=== PATIENT | female | born 1945 | race Caucasian/White ===

== ENCOUNTER 2016-09-25 10:31 | Emergency (ER) | payer OTHER ==
[~2016-09-25] VITALS: Ht 165.1 cm; Wt 70.3 kg
[2016-09-25 10:34] VITALS: BP 136/73
[2016-09-25] MEDS ORDERED: DIAZEPAM 5 MG TABLET PO ONE (11:00)
[2016-09-25] MEDS ORDERED: OXYCODONE/APAP 5/325 TABLET. PO ONE (11:00)
--- NOTE | 2016-09-25 11:09 | PHYS DOC ---
Past Medical History Past Medical History: Anxiety, Arthritis, GERD, Hypothyroid, Other Additional Past Medical Histor: dry eyes and mouth Past Surgical History: Hysterectomy, Tonsillectomy, Other Additional Past Surgical Histo: bilateral hip; R shoulder; ovarian cystectomy Alcohol Use: None Drug Use: None Adult General Chief Complaint Chief Complaint: Neck Pain HPI HPI Patient is a 71 year old female with history of anxiety hypothyroidism and acid reflux who presents today with mild neck pain that began 3 days ago when she got up. Patient states she had right hip surgery 6 weeks ago, she states she was instructed not to sleep on her right side. She states by the nature of sleeping on the left side she has neck pain and pain btwn her shoulder blades. Patient denies any shortness of breath. Denies any coughing or fever. She states she is currently on aspirin for DVT prophylaxis. She states she also has been taking oxycodone for her pain. She states she tried taking a muscle relaxer at home with no relief. She cannot remember the name of the muscle relaxer. PCP at . Review of Systems Review of Systems Constitutional: Denies fever or chills [] Eyes: Denies change in visual acuity, redness, or eye pain [] HENT: Denies nasal congestion or sore throat [] Respiratory: Denies cough or shortness of breath [] Cardiovascular: No additional information not addressed in HPI [] GI: Denies abdominal pain, nausea, vomiting, bloody stools or diarrhea [] : Denies dysuria or hematuria [] Musculoskeletal: neck pain, pain btwn shoulder blades Integument: Denies rash or skin lesions [] Neurologic: Denies headache, focal weakness or sensory changes [] Endocrine: Denies polyuria or polydipsia [] Current Medications Current Medications Current Medications Medications (Trade) Dose Ordered Sig/Adryan Start Time Stop Time Status Last Admin Dose Admin Diazepam (Valium) 5 mg 1X ONCE 09/25/16 11:00 09/25/16 11:02 DC 09/25/16 12:17 5 MG Oxycodone/ Acetaminophen (Percocet 5/325) 1 tab 1X ONCE 09/25/16 11:00 09/25/16 11:02 DC 09/25/16 12:17 1 TAB Allergies Allergies Allergies Coded Allergies Type Severity Reaction Last Updated Verified No Known Drug Allergies 3/16/17 No Physical Exam Physical Exam Constitutional: Well developed, well nourished, no acute distress, non-toxic appearance. [] HENT: Normocephalic, atraumatic, bilateral external ears normal, oropharynx moist, no oral exudates, nose normal. [] Eyes: PERRLA, EOMI, conjunctiva normal, no discharge. [] Neck: Diffuse paraspinal muscle tenderness to posterior cervical spine, no midline tenderness. Slightly Limited range of motion to the left lateral spine due to pain. No tenderness, supple, no stridor. [] Cardiovascular:Heart rate regular rhythm, no murmur [] Lungs & Thorax: Bilateral breath sounds clear to auscultation [] Abdomen: Bowel sounds normal, soft, no tenderness, no masses, no pulsatile masses. [] Skin: Warm, dry, no erythema, no rash. [] Back: No tenderness, no CVA tenderness. [] Extremities: No tenderness, no cyanosis, no clubbing, ROM intact, no edema. [] Neurologic: Alert and oriented X 3, normal motor function, normal sensory function, no focal deficits noted. [] Psychologic: Affect normal, judgement normal, mood normal. [] Current Patient Data Vital Signs Vital Signs Date Time Temp Pulse Resp B/P Pulse Ox O2 Delivery O2 Flow Rate FiO2 09/25/16 12:17 18 95 Room Air 09/25/16 10:34 97.9 96 136/73 97.9 EKG EKG [] Radiology/Procedures Radiology/Procedures [] Course & Med Decision Making Course & Med Decision Making Pertinent Labs and Imaging studies reviewed. (See chart for details) Patient is in the ED complaining of neck pain and pain between her shoulder blades, she had right hip replacement surgery 6 weeks ago and states she's been sleeping on her left side or her back by request from her doctor not to lay on her right side. Patient is refusing any cardiac workup especially with her history of having recent hip replacement and pain between her shoulder blades. All she wants her x-rays. Cervical spine x-rays are negative for any acute findings but noted for DJD. Discharged with instructions to follow-up with her PCP in 1-2 weeks. Instructed to continue taking her muscle relaxer and oxycodone at home. She states her muscle relaxer could be . Gave her prescription for Flexeril. Dragon Disclaimer Dragon Disclaimer This electronic medical record was generated, in whole or in part, using a voice recognition dictation system. Departure Departure Impression: Primary Impression: Acute torticollis Additional Impression: DJD (degenerative joint disease), cervical Disposition: HOME, SELF-CARE Condition: STABLE Referrals: TRACEY DURAN (PCP) Follow-up with your own doctor in 1-2 weeks. Patient Instructions: Arthritis, Degenerative-Brief, Torticollis, Acute Additional Instructions: You were seen for arthritis and degenerative changes in your neck. Follow-up with your own primary care doctor in the next 7 days. Continue taking your pain medicines at home. Take the prescribed muscle relaxer as needed. Come back to the ED at any point symptoms worsen. Scripts Cyclobenzaprine Hcl 10 Mg Tablet1 Tab PO TID #30 TAB Prov:SHANNON DRAPER APRN 09/25/16 Problem Qualifiers SHANNON DRAPER APRN Sep 25, 2016 11:09
--- NOTE | 2016-09-25 11:54 | RAD ---
AP chest, 09/25/2016: History: Upper back pain, cough Comparison is made to a study from 03/27/2011. The heart size and pulmonary vascularity are normal. No pulmonary infiltrates are seen. There is no evidence of pleural fluid. IMPRESSION: No acute cardiopulmonary abnormality is detected.
--- NOTE | 2016-09-25 11:55 | RAD ---
Cervical spine, 3 views, 09/25/2016: History: Neck pain No fracture or dislocation is identified. There is moderate disc space narrowing at C5-6 and C6-7 with moderate marginal spurring. There is a lesser degree of disc space narrowing and marginal spurring at C4-5. There are moderate hypertrophic degenerative changes involving scattered facet joints bilaterally. No prevertebral soft tissue swelling is seen. IMPRESSION: 1. Moderate multilevel degenerative change. 2. No acute bony abnormality is detected.
[2016-09-25] MEDS ORDERED: CYCL10TA2 PO (13:06)
== END 2016-09-25 13:13 | disposition home or self-care (01) ==
LOC: ER 10:31
DX: M43.6 Torticollis (principal); M47.9 Spondylosis, unspecified; Z79.82 Long term (current) use of aspirin; F41.9 Anxiety disorder, unspecified; M19.90 Unspecified osteoarthritis, unspecified site; K21.9 Gastro-esophageal reflux disease without esophagitis; E03.9 Hypothyroidism, unspecified; Z86.718 Personal history of other venous thrombosis and embolism; Z90.710 Acquired absence of both cervix and uterus
CPT/HCPCS: 71010; 72040; 99284-25

== ENCOUNTER → 2016-10-22 | Outpatient (CLI) | payer OTHER ==
[2016-09-25 10:34] VITALS: BP 136/73
[~2016-10-22] MED LIST: CYCL10TA2 PO
--- NOTE | 2016-10-22 16:20 | KCIC ---
Bilateral digital screening mammograms with CAD: HISTORY Routine screening COMPARISON Comparison is made to previous examinations dated back to 06/03/2013. FINDINGS Breast density category C. The skin and nipples show no abnormalities. No abnormal lymph nodes are seen in the axilla. The breast parenchyma shows heterogeneous density. There are no dominant masses, suspicious calcifications or architectural distortions. IMPRESSION No evidence of malignancy. Recommend routine annual mammographic screening. This study was interpreted with the benefit of Computerized Aided Detection (CAD). Mammography is not 100% sensitive in detecting breast cancer. Therefore, a self breast exam and a clinical breast exam are very important. A negative mammogram does not negate a clinically suspicious finding and should not result in a delay in biopsying a clinically suspicious abnormality. BI-RADS category 2: Benign. This patient's information has been entered into a reminder system for the patient to be notified with the results of this examination and a target date for her next mammograms. Electronically signed by: Ladan Davis MD (Oct 22, 2016 16:17:39)
== END | disposition home or self-care (01) ==
LOC: KCIC MAMMO 14:23
PROVIDERS: ATTEND Obstetrics & Gynecology
DX: Z12.31 Encounter for screening mammogram for malignant neoplasm of breast (principal)
CPT/HCPCS: G0202; 77067

== ENCOUNTER → 2017-11-12 | Outpatient (CLI) | payer OTHER | END | disposition home or self-care (01) | LOC: KCIC MAMMO 14:06 | DX: Z12.31 Encounter for screening mammogram for malignant neoplasm of breast (principal) | CPT/HCPCS: 77063; 77067 ==

== ENCOUNTER → 2018-04-08 | Outpatient (CLI) | payer OTHER ==
--- NOTE | 2018-04-08 14:36 | KCIC ---
MRI of the lumbar spine without contrast 04/08/2018 HISTORY: Chronic low back pain. TECHNIQUE: Unenhanced T1-weighted and T2-weighted sagittal and axial and inversion recovery sagittal images of the lumbar spine were obtained. FINDINGS: Minimal S-shaped curvature of the thoracolumbar spine is seen. Degenerative signal changes are seen involving all of the disks of the lumbar spine. Degenerative signal changes are seen within the marrow surrounding these discs. The conus medullaris is normal morphology, position, and signal characteristics. At the L1-2 and L2-3 and L3-4 disc spaces there are mild generalized disc bulges. Degenerative changes are seen involving the facet joints bilaterally. There is mild to moderate ligamentum flavum hypertrophy bilaterally. These findings do not result in significant central spinal canal or neural foraminal stenosis. At the L4-5 disc space there is a mild generalized disc bulge. Degenerative changes are seen involving the facet joints bilaterally. There is moderate ligamentum flavum hypertrophy bilaterally. These findings when combined result in mild central spinal canal stenosis. No neural foraminal stenosis is seen. At the L5-S1 disc space there is a mild generalized disc bulge. Superimposed on this disc bulge is a focal central disc protrusion. This measures 3 mm in AP diameter. Degenerative changes are seen involving the facet joints bilaterally. There is moderate ligamentum flavum hypertrophy bilaterally. Small to moderate-sized facet joint effusions are seen. These findings when combined do not result in significant central spinal canal or neural foraminal stenosis. IMPRESSION: The changes of degenerative disc disease are seen involving the lumbar spine. These findings result in mild central spinal canal stenosis at L4-5. No neural foraminal stenosis is seen. Electronically signed by: Luis Miguel García MD (04/08/2018 2:32 PM) [email or web address]
== END | disposition home or self-care (01) ==
LOC: KCIC MRI 12:21
PROVIDERS: ATTEND Internal Medicine
DX: M51.36 Other intervertebral disc degeneration, lumbar region (principal); M51.26 Other intervertebral disc displacement, lumbar region; M48.061 Spinal stenosis, lumbar region without neurogenic claudication; M25.48 Effusion, other site; G89.29 Other chronic pain
CPT/HCPCS: 72148

== ENCOUNTER → 2018-04-13 | Outpatient (CLI) | payer OTHER ==
--- NOTE | 2018-04-13 15:26 | KCIC ---
EXAM: Lumbar spine, flexion and extension. HISTORY: Spondylolisthesis. COMPARISON: MRI dated 04/08/2018. FINDINGS: Lateral neutral, flexion and extension views of the lumbar spine are obtained. There is grade 1 anterolisthesis of L5 on S1 which measures approximately 4 mm in neutral position and increases to 7 mm with flexion. No additional significant listhesis is seen. The vertebral bodies are normal in height. There is endplate remodeling at all levels. There are few endplate Schmorl's nodes. There is facet arthropathy at all levels. IMPRESSION: 1. Grade 1 anterolisthesis of L5 on S1 which increases with flexion. 2. Multilevel degenerative change throughout the lumbar spine. Electronically signed by: Mandi Storey MD (04/13/2018 3:22 PM) [email or web address]
== END | disposition home or self-care (01) ==
LOC: KCIC 13:58
PROVIDERS: ATTEND Neurological Surgery
DX: M43.17 Spondylolisthesis, lumbosacral region (principal); M47.896 Other spondylosis, lumbar region; M51.46 Schmorl's nodes, lumbar region; M12.88 Other specific arthropathies, not elsewhere classified, other specified site; E03.9 Hypothyroidism, unspecified; K21.9 Gastro-esophageal reflux disease without esophagitis; Z86.718 Personal history of other venous thrombosis and embolism; Z90.710 Acquired absence of both cervix and uterus
CPT/HCPCS: 72100

== ENCOUNTER → 2019-04-14 | Outpatient (CLI) | payer OTHER ==
[~2019-04-14] MED LIST changes: +CEVI30CA5 PO; +CLON2TAB PO; +DOCU100C28 PO; +LACT1CAP8 PO; +LEVO88TA4 PO; +MULT1TAB52 PO; +OMEG-57 PO; +OMEP40CA45 PO; +OXYC1TAB15 PO
--- NOTE | 2019-04-14 19:31 | PAIN ---
DATE OF SERVICE: 04/14/2019 INITIAL CONSULTATION FOR PAIN CLINIC CHIEF COMPLAINT: Low back and right lower extremity pain. HISTORY OF PRESENT ILLNESS: This is a 73-year-old female who presents with history of pain in the low back and right leg, mostly in the hip posteriorly in the posterior lateral thigh, and gluteus. The patient reports it is worse with movement, walking, standing, changing positions. She is doing some strengthening and stretching exercises. The patient reports that started about 2017. She did a "boot camp for seniors," which has some significant exercise involved and strained her back. The patient reports it has not been the same since she has had physical therapy treatment. She has had chiropractic treatment, doing exercise currently, trigger point injections and had a shot at her orthopedic surgeon's office as well in the posterior hip, all of which was very temporary in helping. She has been taking oxycodone; however, 5 mg and takes 3 a day, one in the morning, one around noontime and one in the evening and she has 0 pain with this regimen. The patient reports otherwise she has pain with movement, walking, standing, changing positions. Reports currently, the pain does not awaken her from sleep at night, does not affect her bowel or bladder control, does not affect her ability to walk, does not use any assistive devices to walk, as well as long she is taking oxycodone. She is doing weights. She has 0 pain. The patient reports disability rating from 0-10, 10 being the worst to 1 and recreational activities and 0 in all other categories. The patient did have MRI scan of the lumbar spine showing L4-L5 degenerative disk changes and bulging disks with some mild central spinal canal stenosis, also L5-S1 shows disk space with mild generalized disk bulge and focal disk protrusion centrally with moderate ligamentum flavum hypertrophy, but without any significant central spinal canal or neural foraminal stenosis. The patient reports no loss of motor function as long she takes her oxycodone, she has no pain. PAST MEDICAL HISTORY: Significant for arthritis, gastroesophageal reflux, mild hearing loss. PREVIOUS SURGERY: Include hip replacement in 2017 and right cataract extraction. CURRENT MEDICATIONS: Include cyclobenzaprine, Evoxac, Klonopin, docusate, fish oil, oxycodone, probiotics, omeprazole, multivitamins, and levothyroxine. ALLERGIES: The patient has no known drug allergies. FAMILY HISTORY: Significant for no major medical problems or conditions she is aware of. SOCIAL HISTORY: The patient does not drink alcohol, does not smoke, does not use illegal or recreational drugs. She is single, , lives locally in [place], [place]. Reports she is currently retired. REVIEW OF SYSTEMS: The patient's review of systems is positive for those items mentioned in history of present illness. All systems reviewed and otherwise negative. It is complete, full and well documented on the patient's chart. PHYSICAL EXAMINATION: VITAL SIGNS: Blood pressure 130/81, pulse 64, respirations 18, temperature 98.2 degrees Fahrenheit, height is 5 feet 5 inches, weight is 162 pounds. GENERAL: The patient is awake, alert, oriented, appropriate, very pleasant demeanor. HEENT: Shows normocephalic, atraumatic. Extraocular movements are intact and symmetrical. Oral cavity: Mucous membranes moist and pink. Dentition is intact. NECK: Shows anterior throat supple without palpable lymphadenopathy noted. Swallow reflex symmetrical. CHEST: Shows normal on inspection. Breath sounds are clear to auscultation bilaterally. HEART: Shows S1, S2 clear. No murmurs auscultated. ABDOMEN: Soft, nontender and nondistended. No palpable organomegaly is noted. No rebound or guarding demonstrated. BACK: Shows spine grossly in the midline. Normal appearing thoracic kyphosis and lumbar lordotic curvature. Lumbar paraspinous muscle shows symmetrical on inspection with palpation shows some very mild tenderness only with very deep palpation just right of midline in the low lumbar distribution without radiation. No tenderness over the spinous processes, sacrum or sacroiliac regions. The patient has full rotational motion of lumbar spine, both laterally as well as extension and flexion without difficulty. EXTREMITIES: Lower extremities show deep tendon reflexes 2+ in the patellar, 1+ tendo-calcaneus tendons. Motor exam is strong with 5/5 dorsiflexion, extension, quadriceps and hamstring flexion and symmetrical. Peripheral pulses are 1+ posterior tibial. The patient has some very mild straight leg raise on the right side, but only very mild about 45 degrees, decreased with knee flexion, left side is negative. Peripheral pulses are 1+ posterior tibial. Lower extremities are warm and dry to touch, equal in color and appearance. No peripheral edema is noted bilaterally. The patient is able to stand, stand on her toes without difficulty or loss of balance, walks with normal appearing gait without any assistive devices. SKIN: The patient's skin shows warm and dry, good turgor. No edema. No sores, rashes or bruising throughout. IMPRESSION: 1. This is a 73-year-old female with approximate 3-year history of increasing low back pain, right lower extremity following an L5-S1 dermatomal distribution into the right lower extremity, mostly just in the upper leg and hip. 2. Arthritis. 3. Hearing loss. 4. Gastroesophageal reflux. PLAN: Options were discussed with the patient including conservative medical management, physical therapies, interventional techniques, she would like to pursue interventional techniques as she has done all of the other therapies and is continuing to do exercises on her own. We discussed a lumbar epidural steroid injection using description as well as anatomical models to describe the procedure. She will wait for preauthorization with her insurance provider for her persistent right L5-S1 dermatomal radiculopathy. We will plan on lumbar epidural steroid injection, translaminar approach at the L5-S1 level. In the meantime, the patient will try Medrol Dosepak. The patient was given instruction and side effects to be aware with the medication and will follow up for lumbar epidural steroid injection as scheduled. LAURA GONZÁLES MD DR: RED/je JOB#: [id number] / [id number]
== END | disposition home or self-care (01) ==
LOC: PNCL 13:32
PROVIDERS: ATTEND Anesthesiology
DX: M54.5 Low back pain (principal); M19.90 Unspecified osteoarthritis, unspecified site; H91.90 Unspecified hearing loss, unspecified ear; K21.9 Gastro-esophageal reflux disease without esophagitis; Z96.649 Presence of unspecified artificial hip joint
CPT/HCPCS: G0463

== ENCOUNTER → 2019-10-31 | Outpatient (CLI) | payer MEDICARE ==
--- NOTE | 2019-10-31 10:11 | KCIC ---
CT CHEST WO CONTRAST Indication: Esophageal discomfort. Heartburn. Exposure: One or more of the following individualized dose reduction techniques were utilized for this examination: 1. Automated exposure control 2. Adjustment of the mA and/or kV according to patient size 3. Use of iterative reconstruction technique. Technique: Standard imaging without intravenous contrast. Comparison: None are available. FINDINGS: Aorta is mildly calcified. No evidence of aortic aneurysm. Vascular exam otherwise limited without intravenous contrast. Visualized thyroid appears symmetric. No evidence of pathologic mediastinal or axillary lymph node enlargement. Small soft tissue calcifications are seen in the right axilla. Mild coronary artery calcification. No significant pericardial effusion or cardiomegaly. Esophagus demonstrates no abnormal distention or wall thickening. No dominant pulmonary mass. No evidence of consolidating infiltrate. The trachea and mainstem bronchi are patent. No evidence of pneumothorax. Breast density is roughly symmetric. Vertebral body height and alignment are intact with mild degenerative change. Scans through the upper abdomen are limited by technique. There is some density within a barely visualized bowel loop in the right upper quadrant, probably in the gastroduodenal junction region, may be something recently ingested. This appears separate from the gallbladder. IMPRESSION: No acute findings are identified in the chest. Electronically signed by: Bobo Butcher MD (10/31/2019 10:07 AM) [id number]
== END | disposition home or self-care (01) ==
LOC: KCIC CT 09:28
PROVIDERS: ATTEND Internal Medicine Gastroenterology
DX: R12 Heartburn (principal); K22.8 Other specified diseases of esophagus; I70.0 Atherosclerosis of aorta; I25.10 Atherosclerotic heart disease of native coronary artery without angina pectoris
CPT/HCPCS: 71250

== ENCOUNTER 2021-01-19 13:32 | Emergency (ER) | payer MEDICARE ==
[~2021-01-19] VITALS: Ht 165.1 cm; Wt 67.7 kg
[~2021-01-19 13:32] MED LIST changes: +MULT-445 PO; -MULT1TAB52 PO; -OMEP40CA45 PO; +OMEP40CA7 PO
[2021-01-19] MEDS ORDERED: DEXAMETHASONE SOD PHOS 20 MG/5 ML VIAL. PO ONE (15:30)
[2021-01-19] MEDS ORDERED: ORPHENADRINE CITRATE 60 MG/2 ML VIAL. IM ONE (15:30)
--- NOTE | 2021-01-19 16:16 | RAD ---
CT head without contrast: Reason for examination: Head and neck pain for one week. Helical images were obtained through the brain. No contrast was administered. Ventricular systems are symmetric and not abnormally dilated. No midline shift is seen. There is no e vidence of intracranial hemorrhage, acute infarct, mass or edema. No abnormalities of seen at the orb its. The paranasal sinuses and mastoid air cells are clear. No acute skeletal abnormalities are seen. IMPRESSION: No acute intracranial abnormality evident. CT cervical spine without contrast: Helical images were obtained through the cervical spine from the skull base through the thoracic apic es with no contrast administered. Reconstruction was performed in sagittal and coronal planes. The C1 ring is intact. The odontoid process is intact and normally centered between the lateral frank s of C1. The vertebral bodies of the cervical spine are normally aligned anteriorly and posteriorly. No acute fracture or subluxation is seen. Posterior elements appear to be intact. Nuchal ligament erum cification is evident. The intervertebral discs show moderate to severe loss of disc height at the C 5/6 and C6-7 disc levels. There does not appear to be significant central stenosis but there does laina ear to be some left neural foraminal stenosis from the C3-4 through the C6-7 disc levels and at the C 3-4 disc level on the right. Prevertebral soft tissues are normal. IMPRESSION: No acute abnormality evident in the cervical spine. Degenerative spondylosis is present however and there is right neural foraminal stenosis at the C3-4 level and left neural foraminal stenosis from the C3-4 through the C6-7 levels. Exposure: One or more of the following individualized dose reduction techniques were utilized for thi s examination: 1. Automated exposure control 2. Adjustment of the mA and/or kV according to patient size 3. Use of iterative reconstruction technique. Electronically signed by: Candace Davis MD (01/19/2021 4:14 PM) [id number]
[2021-01-19 16:24] LABS: BILIRUBIN,URINE NEGATIVE (NEG); CLARITY,URINE CLEAR; COLOR,URINE YELLOW; NITRITE,URINE NEGATIVE (NEG); PROTEIN,URINE NEGATIVE (NEG-TRACE); UROBILINOGEN,URINE 0.2 mg/dL (0.2 mg/dL)
[2021-01-19 16:32] LABS: BACTERIA,URINE 0 /HPF (0-FEW); RBC,URINE OCC /HPF (0-2); WBC,URINE 0 /HPF (0-4)
--- NOTE | 2021-01-19 16:32 | ED.ADGEN ---
Past Medical History Past Medical History: Anxiety, Arthritis, GERD, Hypothyroid, Other Additional Past Medical Histor: dry eyes and mouth Past Surgical History: Hysterectomy, Tonsillectomy, Other Additional Past Surgical Histo: bilateral hip; R shoulder; ovarian cystectomy, R/L LACROMAL TEMI TUBES ([facility]) Smoking Status: Never Smoker Alcohol Use: None Drug Use: None General Adult EDM: Chief Complaint: NECK PAIN HPI: HPI: Patient is a 75 year old female, accompanied by her , who presents to the emergency department with complaints of bilateral neck pain and upper back pain for the last week. Patient states she has tried [id number] muscle rubs, her prescription oxycodone, ice and heat with no relief of her pain. She denies any recent injury. Patient denies any fever, headache, body aches, fatigue, cough, chest pain, nausea, vomiting, diarrhea, numbness, tingling, weakness, or decreased sensation. She states initially she woke up with the pain in the left side of her neck 1 week ago she thought she just slept wrong gradually the pain has developed in the right side of her neck also. Patient denies any dizziness, vision changes, or sore throat. She reports that she received both doses of them during the Covid vaccine and finished a series at the end of September 2020. She currently rates her pain a 7 out of 10 on the pain scale, she denies any alleviating factors the pain is worse with movement. Review of Systems: Review of Systems: Complete ROS is negative unless otherwise noted in HPI. Current Medications: Current Medications Medications (Trade) Dose Ordered Sig/Adryan Start Time Stop Time Status Last Admin Dose Admin Dexamethasone Sodium Phosphate (Decadron) 10 mg 1X ONCE 01/19/21 15:30 01/19/21 15:31 DC 01/19/21 15:36 10 MG Orphenadrine Citrate (Norflex) 60 mg 1X ONCE 01/19/21 15:30 01/19/21 15:31 DC 01/19/21 15:37 60 MG Allergies: Allergies: Allergies Coded Allergies Type Severity Reaction Last Updated Verified No Known Drug Allergies 09/25/16 No Physical Exam: PE: See Above Constitutional: Well developed, well nourished, no acute distress, non-toxic appearance. [] HENT: Normocephalic, atraumatic, bilateral external ears normal, nose normal. [] Eyes: PERRLA, EOMI, conjunctiva normal, no discharge. [] Neck: No stridor; limited range of motion due to pain, cervical paraspinal tenderness to palpation, no bony tenderness or deformity, no crepitus,, no nuchal rigidity Cardiovascular:Heart rate regular rhythm Lungs & Thorax: Respirations even and unlabored, no retractions, no respiratory distress Abdomen: soft, no tenderness Skin: Warm, dry, no erythema, no rash. [] Extremities: No cyanosis, ROM intact, no edema. [] Neurologic: Alert and oriented X 3, normal motor, normal sensory, no focal deficits noted. [] Psychologic: Affect normal, judgement normal, mood normal. [] Current Patient Data: Labs: Laboratory Tests Test 01/19/21 14:52 Urine Collection Type Unknown Urine Color Yellow Urine Clarity Clear Urine pH 6.0 (<5.0-8.0) Urine Specific [place] 1.020 (1.000-1.030) Urine Protein Negative mg/dL (NEG-TRACE) Urine Glucose (UA) Negative mg/dL (NEG) Urine Ketones (Stick) Negative mg/dL (NEG) Urine Blood Negative (NEG) Urine Nitrite Negative (NEG) Urine Bilirubin Negative (NEG) Urine Urobilinogen Dipstick 0.2 mg/dL (0.2 mg/dL) Urine Leukocyte Esterase Negative (NEG) Urine RBC Occ /HPF (0-2) Urine WBC 0 /HPF (0-4) Urine Squamous Epithelial Cells Few /LPF Urine Bacteria 0 /HPF (0-FEW) Urine Mucus Slight /LPF Vital Signs: Vital Signs Date Time Temp Pulse Resp B/P (MAP) Pulse Ox O2 Delivery O2 Flow Rate FiO2 01/19/21 16:05 78 12 145/67 (93) 91 Room Air 01/19/21 15:00 98.2 98.2 EKG: EKG: [] Heart Score: C/O Chest Pain: No Radiology/Procedures: Radiology/Procedures: PROCEDURE: CT HEAD AND CERVICAL SPINE WO CT head without contrast: Reason for examination: Head and neck pain for one week. Helical images were obtained through the brain. No contrast was administered. Ventricular systems are symmetric and not abnormally dilated. No midline shift is seen. There is no evidence of intracranial hemorrhage, acute infarct, mass or edema. No abnormalities of seen at the orbits. The paranasal sinuses and mastoid air cells are clear. No acute skeletal abnormalities are seen. IMPRESSION: No acute intracranial abnormality evident. CT cervical spine without contrast: Helical images were obtained through the cervical spine from the skull base through the thoracic apices with no contrast administered. Reconstruction was performed in sagittal and coronal planes. The C1 ring is intact. The odontoid process is intact and normally centered between the lateral masses of C1. The vertebral bodies of the cervical spine are normally aligned anteriorly and posteriorly. No acute fracture or subluxation is seen. Posterior elements appear to be intact. Nuchal ligament calcification is evident. The intervertebral discs show moderate to severe loss of disc height at the C 5/6 and C6-7 disc levels. There does not appear to be significant central stenosis but there does appear to be some left neural foraminal stenosis from the C3-4 through the C6-7 disc levels and at the C3-4 disc level on the right. Prevertebral soft tissues are normal. IMPRESSION: No acute abnormality evident in the cervical spine. Degenerative spondylosis is present however and there is right neural foraminal stenosis at the C3-4 level and left neural foraminal stenosis from the C3-4 through the C6-7 levels. Exposure: One or more of the following individualized dose reduction techniques were utilized for this examination: 1. Automated exposure control 2. Adjustment of the mA and/or kV according to patient size 3. Use of iterative reconstruction technique. Electronically signed by: Candace Davis MD (01/19/2021 4:14 PM) [id number] [] Course & Med Decision Making: Course & Med Decision Making Pertinent Labs and Imaging studies reviewed. (See chart for details) Patient is a 75-year-old female who presents emergency department with complaints of neck pain began a week prior to arrival. CT revealed no acute findings. Patient's UA was also unremarkable. Patient was given IM Norflex and 10 mg of p.o. Decadron in the ER she reported to moderate pain relief after these medications. Prescriptions written for orphenadrine tablets and a Medrol Dosepak. Patient instructed to follow-up with her primary care doctor this week, return to the ER symptoms worsen. Patient verbalized an understanding of home care, medications, follow-up, and return to ED instructions and was in agreement with the plan of care. [] Dragon Disclaimer: Dragon Disclaimer: This electronic medical record was generated, in whole or in part, using a voice recognition dictation system. Departure Departure Impression: Primary Impression: DJD (degenerative joint disease), cervical Additional Impression: Acute torticollis Disposition: HOME / SELF CARE / HOMELESS Condition: STABLE Referrals: TRACEY DURAN (PCP) Patient Instructions: Torticollis, Acute Additional Instructions: Fill the prescription(s) and use as directed. Apply heat or ice for to sore areas as needed for comfort. Activity as tolerated. Follow up with your primary care doctor this week if symptoms persist, return to the ER if symptoms worsen or you develop a fever. Scripts Methylprednisolone (MEDROL) 4 Mg Tab.ds.pk 1 PKG PO UD for 6 Days, #1 PKG 0 Refills Prov: GODFREY GEIGER APRN 01/19/21 Orphenadrine Citrate (ORPHENADRINE CITRATE) 100 Mg Tablet.er 1 TAB PO BID PRN for PAIN for 10 Days, #20 TAB 0 Refills Prov: GODFREY GEIGER APRN 01/19/21 Problem Qualifiers Primary Impression: DJD (degenerative joint disease), cervical Spinal osteoarthritis complication: unspecified spinal osteoarthritis Qualified Codes: M47.812 - Spondylosis without myelopathy or radiculopathy, cervical region GODFREY GEIGER STAFF [employer]IM[employer] SCI[employer]IST Jan 19, 2021 16:32
[2021-01-19 16:35] VITALS: BP 137/79
[2021-01-19] MEDS ORDERED: METH4TAB2 PO (16:49)
[2021-01-19] MEDS ORDERED: ORPH100T PO (16:49)
== END 2021-01-19 16:55 | disposition home or self-care (01) ==
LOC: ER 13:32
DX: M47.812 Spondylosis without myelopathy or radiculopathy, cervical region (principal); M43.6 Torticollis; F41.9 Anxiety disorder, unspecified; M19.90 Unspecified osteoarthritis, unspecified site; K21.9 Gastro-esophageal reflux disease without esophagitis; E03.9 Hypothyroidism, unspecified
CPT/HCPCS: 70450; 72125; 81001; 96372; 99285; J1100; J2360